=== PATIENT | female | born 1955 | race Caucasian/White ===

== ENCOUNTER 2022-06-09 12:06 | Day surgery (SDC) | payer OTHER ==
[~2022-06-09] VITALS: Ht 167.6 cm; Wt 64.8 kg
[~2022-06-09 12:06] MED LIST: CELE1CAP9 PO; ECOT81TA5 PO; ESTR0.5T16 PO; EZET10TA21 PO; FENO145T7 PO; HYDR-3490 PO; INFL10VL IV; LIDOCAINE 3.5 % 1ML OPHTH TOPICAL GEL OU ONE; MIDAZOLAM INJ 2MG/2ML VIAL (J2250 PER 1MG) As Ordered ONE; MONT10TA97 PO; OMEP40CA5 PO; TRAZ-257 PO; [UNRECOGNIZED DRUG - OTHER]
[2022-06-09] MEDS ORDERED: TOBRADEX OPHTH OINT 3.5 GM As Ordered ONE (13:22)
[2022-06-09] MEDS ORDERED: mitoMYcin 0.2 MG/VIAL KIT FOR OPHTHALMIC USE As Ordered ONE (13:22)
[2022-06-09] MEDS ORDERED: LIDOCAINE 2% W/EPINEPHRINE 20ML VIAL **PRES FREE As Ordered ONE (13:35)
[2022-06-09 14:50] VITALS: BP 127/87
== END 2022-06-09 15:08 | disposition home or self-care (01) ==
LOC: M SDC 12:06
PROVIDERS: ATTEND Ophthalmology
DX: H11.001 Unspecified pterygium of right eye (principal); I10 Essential (primary) hypertension; E78.5 Hyperlipidemia, unspecified; M10.9 Gout, unspecified; K58.8 Other irritable bowel syndrome; K21.9 Gastro-esophageal reflux disease without esophagitis; M06.9 Rheumatoid arthritis, unspecified; Z79.899 Other long term (current) drug therapy; Z88.0 Allergy status to penicillin; Z91.040 Latex allergy status
CPT/HCPCS: 65426; 88304; C1762; J2250; J7315